=== PATIENT | female | born 1975 | race Hispanic/Latino ===

== ENCOUNTER 2020-09-12 10:59 | Day surgery (SDC) | payer OTHER ==
[2020-09-10 13:20] VITALS: BP 173/89
[~2020-09-12] VITALS: Ht 157.5 cm; Wt 75.6 kg
[~2020-09-12 10:59] MED LIST: 0.9%NACL 1000ML 1,000 ML IV ONE; ATOR40TA71 PO; INSU100V37 SQ; LISI20TA24 PO; METO-408 PO; [UNRECOGNIZED DRUG - OTHER] SQ
[2020-09-12 11:21] VITALS: BP 135/83
[2020-09-12] MEDS ORDERED: IOPAMIDOL 10 ML VIAL ONE (11:33)
[2020-09-12] MEDS ORDERED: LIDOCAINE HCL MPF 1% 5ML VIAL ONE (11:54)
[2020-09-12] MEDS ORDERED: DEXAMETHASONE SOD PHOSPHATE 4 MG/ML 1ML VIAL ONE (11:54)
[2020-09-12 12:30] VITALS: BP 105/73
[2020-09-12 12:45] VITALS: BP 109/67
[2020-09-12 13:00] VITALS: BP 123/79
== END 2020-09-12 13:30 | disposition home or self-care (01) ==
LOC: DAH 10:59
PROVIDERS: ATTEND Family Medicine Sports Medicine
DX: M51.36 Other intervertebral disc degeneration, lumbar region (principal); G89.29 Other chronic pain; E11.9 Type 2 diabetes mellitus without complications; Z90.49 Acquired absence of other specified parts of digestive tract; Z20.828 Contact with and (suspected) exposure to other viral communicable diseases
CPT/HCPCS: 62323; 82948 ×2; A4215 ×2; A4221; A4222; A4223; A4606; A4663; A6260; C9803; J1100; J3490; J7030; Q9966; U0003; 62320; 77003

== ENCOUNTER → 2021-01-07 | Outpatient (CLI) | payer BC ==
[~2021-01-07] MED LIST changes: -0.9%NACL 1000ML 1,000 ML IV ONE
== END | disposition home or self-care (01) ==
LOC: RAH 10:48
PROVIDERS: ATTEND Internal Medicine
DX: R13.10 Dysphagia, unspecified (principal); I69.891 Dysphagia following other cerebrovascular disease
CPT/HCPCS: 74230; 92611